=== PATIENT | male | born 1960 | race Caucasian/White ===

== ENCOUNTER 2019-10-04 14:36 | Outpatient (CLI) | payer OTHER, SELFPAY ==
--- NOTE | 2019-10-04 14:49 | XRR_ITS ---
PROCEDURE INFORMATION: Exam: XR Left Shoulder Exam date and time: 10/04/2019 3:24 PM Age: 59 years old Clinical indication: Pain; Shoulder; Left; Additional info: Shoulder pain, left TECHNIQUE: Imaging protocol: XR Left shoulder. Views: AP internal and external rotation views, and a scapular Y view of the LEFT shoulder. COMPARISON: No relevant prior studies available. FINDINGS: Bones/joints: Normal. Soft tissues: Normal. XR/XR shoulder LT min 2V* [id number] IMPRESSION: No acute bony injury identified.
== END 2019-10-04 14:37 | disposition home or self-care (01) ==
LOC: RAD 14:44
PROVIDERS: PCP Nurse Practitioner Family; Visit Provider Nurse Practitioner Family
DX: M25.512 Pain in left shoulder (principal)
CPT/HCPCS: 73030

== ENCOUNTER 2019-12-06 09:01 | Outpatient (CLI) | payer OTHER, SELFPAY ==
--- NOTE | 2019-12-06 | MR_ITS ---
WS: [id number] MRI LEFT SHOULDER NONCONTRAST TECHNIQUE: Sagittal T2, coronal T1, T2 and proton density imaging. Axial gradient PDE imaging. CLINICAL INFORMATION: SHOULDER PAIN, LEFT COMPARISON: None. FINDINGS: Moderate to advanced degenerative arthritis AC joint. Rotator cuff arthropathy with narrowing and cesar r complete loss of the subacromial space. Moderate edema AC joint. Near complete loss of the subacrom ial space with chronic thinning of the residual rotator cuff. Normal supraspinatus is not identified and appears completely torn and retracted. Atrophy of the supraspinatus muscle belly. Supraspinatus a ppears retracted to the level of the glenohumeral joint. A few residual dorsal infraspinatus fibers w ith marked chronic thinning and chronic tear of the majority of the infraspinatus. Chronic atrophy of the infraspinatus muscle belly. Teres minor is normal in appearance. Partial tear with tendinopathy and T2 signal abnormality involvi ng the distal subscapularis tendon. Chronic appearing atrophy of the proximal and intra-articular bic eps tendon consistent with chronic tear. Distal biceps tendon appears more normal in the bicipital g roove. Glenoid labrum appears grossly intact. No visualized labral tears. Degenerative bone marrow si gnal involving the humeral head and greater tuberosity. MR/MR shoulder LT wo con* [id number] IMPRESSION: 1. Moderate to advanced degenerative arthritis AC joint with edema and near co mplete loss of the subacromial space. 2. Chronic appearing full-thickness tear involving the supraspinatus with lee lar appearance to the infraspinatus. A few residual infraspinatus fibers dorsal ly. 3. Normal teres minor. 4. Tendinopathy with partial tear involving the subscapularis tendon with T2 s ignal abnormality and thickening. 5. Tiny atrophic proximal intra-articular biceps tendon consistent with chroni c tear. Distal biceps tendon is a more normal appearance in the bicipital groov e. 6. Glenoid labrum appears grossly intact.
== END 2019-12-06 09:02 | disposition home or self-care (01) ==
LOC: RADWPI 09:04
PROVIDERS: PCP Nurse Practitioner Family; Visit Provider Nurse Practitioner Family
DX: M25.512 Pain in left shoulder (principal); M19.012 Primary osteoarthritis, left shoulder; M75.102 Unspecified rotator cuff tear or rupture of left shoulder, not specified as traumatic
CPT/HCPCS: 73221

== ENCOUNTER → 2022-11-19 10:13 | Outpatient (BNVA) | payer BC, SELFPAY | PROVIDERS: PCP Nurse Practitioner Family; Visit Provider Nurse Practitioner Family | DX: M79.671 Pain in right foot (principal) | CPT/HCPCS: 73630 ==

== ENCOUNTER 2024-05-01 17:46 | Emergency (ER) | payer BC, SELFPAY ==
[2024-05-01 17:50] VITALS: BP 120/75; PULSE 78; RESP 20; TEMP 36.6; O2SAT 99; BMI 28.6
--- NOTE | 2024-05-01 18:24 | CTR_ITS ---
PROCEDURE INFORMATION: Exam: CT Head Without Contrast Exam date and time: 05/01/2024 6:44 PM Age: 64 years old Clinical indication: Other: Syncope TECHNIQUE: Imaging protocol: Computed tomography of the head without contrast. Radiation optimization: All CT scans at this facility use at least one of these dose optimization techniques: automated exposure control; mA and/or kV adjustment per patient size (includes targeted exams where dose is matched to clinical indication); or iterative reconstruction. COMPARISON: No relevant prior studies available. RADIATION DOSE METRICS: Total DLP (mGy-cm): 1070.51 FINDINGS: Brain: No acute intracranial hemorrhage. No acute territorial region of forman-white dedifferentiation. No extra-axial collection. No mass effect or midline shift. Mild burden of nonspecific white matter hypoattenuation, likely chronic microvascular ischemic change. Generalized parenchymal volume loss. Cerebral ventricles: No acute hydrocephalus. Paranasal sinuses: Partially imaged and limited evaluation due to motion. No fluid levels. Mastoid air cells: Visualized mastoid air cells are well aerated. Orbital cavities: Not well evaluated due to motion. Bones: No acute calvarial fracture. Soft tissues: No acute abnormality. CT/CT head wo con* [id number] IMPRESSION: No acute intracranial hemorrhage or evidence of acute territorial infarct.
--- NOTE | 2024-05-01 18:24 | XRR_ITS ---
PROCEDURE INFORMATION: Exam: XR Chest Exam date and time: 05/01/2024 6:33 PM Age: 64 years old Clinical indication: Dyspnea; Additional info: Syncope TECHNIQUE: Imaging protocol: Radiologic exam of the chest. Views: 1 view. COMPARISON: MR shoulder LT wo con* [id number] 12/06/2019 9:28 AM FINDINGS: Lungs: Subsegmental opacity in the left lateral lung base, most likely atelectasis. Pleural spaces: No large pleural effusion. No pneumothorax. Heart/Mediastinum: Cardiomediastinal silhouette within normal limits. Bones/joints: No acute fracture. Moderate acromioclavicular osteoarthritis bilaterally. XR/XR chest 1V portable [id number] IMPRESSION: Subsegmental opacity in the left lateral lung base, most likely atelectasis.
--- NOTE | 2024-05-01 18:27 | ECG_ITS ---
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 Measurements Intervals May Rate: 75 P: 58 VA: 180 QRS: 43 QRSD: 90 T: 58 QT: 403 QTc: 451 Interpretive Statements SINUS RHYTHM Possible left atrial enlargement No previous ECG available for comparison Electronically Signed On 05-01-2024 21:07:37 CDT by lBaise Yancey M.D. [id number]
[2024-05-01 18:46] LABS: Basophils % 0.4 %; Eosinophils # 0.1 10^3/uL (0.0-0.8); Eosinophils % 0.9 %; Lymphocytes # 1.5 10^3/uL (0.8-4.8); Lymphocytes % 14.1 %; Mean Corpuscular HGB Conc 33.5 g/dL (30-55); Mean Corpuscular Hemoglobin 32.6 pg (27-33); Mean Corpuscular Volume 97.5 fl (82-101); Mean Platelet Volume 9.2 fL (7.4-10.4); Monocytes # 0.8 10^3/uL (0.2-0.9); Neutrophils % 76.1 %; Nucleated Red Blood Cells % 0 %; Platelet Count 140 10^3/cmm (157-399); Red Blood Count 4.72 10^6/uL (3.85-5.65); Red Cell Distribution Width 11.8 % (12.1-15.1); White Blood Count 10.25 10^3/uL (3.29-11.43)
--- NOTE | 2024-05-01 18:57 | W.ED.SYNCOPE ---
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 He presents after what sounds like a near syncopal episode while at a family gathering. He had been sitting. He began to feel dizzy meaning lightheaded like he might pass out. He told a family member that he needed to go lay down. After getting up from the sitting position, he fell to the ground. Family that was with him states that he was in fact awake the whole time, but was very weak, diaphoretic, and somewhat altered although mostly coherent. When EMS arrived, at the time they got him up to put him on the gurney, he had a brief syncopal episode then. No convulsions noted. No loss of bowel or bladder function. The patient did not bite his tongue, etc. He feels improved at this point, but still generally weak. Related Data Allergies Allergy/AdvReac Type Severity Reaction Status Date / Time No Known Allergies Allergy Unverified 11/19/22 10:12 Physical Exam Const: COMMON NORMALS: no acute distress GENERAL APPEARANCE: cooperative and ill appearing (Mildly); not frail appearing HENMT: COMMON NORMALS: normocephalic, atraumatic and Normal external nose present HEAD & SCALP: normocephalic and atraumatic FACE & SINUS: normal facial exam and face symmetric NOSE: Normal external nose present Eye: COMMON NORMALS: Equal, round and reactive pupils present and EOMs intact bilaterally PUPIL: Yes Equal, round and reactive pupils present Neck/C-Spine: GENERAL: Yes trachea midline Chest: CHEST: Yes Symmetrical chest wall rise Resp: COMMON NORMALS: normal respiratory effort, No retractions, No use of accessory muscles and clear to auscultation bilaterally AUSCULTATION: clear to auscultation bilaterally Cardio: COMMON NORMALS: regular rate and regular rhythm RATE: regular rate RHYTHM: regular rhythm GI: COMMON NORMALS: Normal to inspection, nondistended, normoactive bowel sounds present Extremity: COMMON NORMALS: no pedal edema Neuro: EDVIN COMA SCALE: document GCS findings Edvin coma scale eye opening: Spontaneous [place] coma scale verbal response: Orientated [place] coma scale motor response: Obey commands Edvin coma scale total score: 15 SENSORY EXAM: Yes extremities (intact) Psych: COMMON NORMALS: speech normal SPEECH: Yes normal speech Skin: COMMON NORMALS: no rashes or lesions noted GENERAL SKIN EXAM: no rashes or lesions noted Course Vital Signs: Vital signs: Vital Signs Temperature 97.9 F 05/01/24 17:50 Pulse Rate 70 05/01/24 20:31 Respiratory Rate 16 05/01/24 20:31 Blood Pressure 132/83 05/01/24 20:31 Pulse Oximetry 97 05/01/24 20:31 Oxygen Delivery Me thod Room Air 05/01/24 20:31 MDM - Syncope Medical Decision Making Apparently his blood pressure was quite low on scene. It is improved now. He had a liter of bolus in the field. He is getting another liter. He is normotensive currently, vitals are stable. His NIH stroke scale is a 0. 240. BUN is 28. Otherwise laboratory not remarkable. Chest x-ray shows atelectasis in the left lateral lung base. Head CT shows nothing acute. Urinalysis is negative. Alcohol is nondetectable. He has received 2 L here. He is feeling better. He is ambulated in the ER. His first troponin is less than 6. His EKG is normal. Awaiting second troponin prior to discharge. He will return for repeated episodes, or other worsening symptoms. Lab Data 05/01/24 18:39 05/01/24 18:39 Radiology Impressions Chest X-Ray 05/01/24 18:24 IMPRESSION: Subsegmental opacity in the left lateral lung base, most likely atelectasis. Head CT 05/01/24 18:24 IMPRESSION: No acute intracranial hemorrhage or evidence of acute territorial infarct. Laboratory Results WBC 10.25 10^3/uL (3.29-11.43) 05/01/24 18:39 RBC 4.72 10^6/uL (3.85-5.65) 05/01/24 18:39 Hgb 15.40 g/dL (11.27-16.99) 05/01/24 18:39 Hct 46.0 % (37-53) 05/01/24 18:39 MCV 97.5 fl (82-101) 05/01/24 18:39 MCH 32.6 pg (27-33) 05/01/24 18:39 MCHC 33.5 g/dL (30-55) 05/01/24 18:39 RDW 11.8 % (12.1-15.1) L 05/01/24 18:39 Plt Count 140 10^3/cmm (157-399) L 05/01/24 18:39 MPV 9.2 fL (7.4-10.4) 05/01/24 18:39 Neut % (Auto) 76.1 % 05/01/24 18:39 Lymph % (Auto) 14.1 % 05/01/24 18:39 [place] % (Auto) 8.0 % 05/01/24 18:39 Eos % (Auto) 0.9 % 05/01/24 18:39 Baso % (Auto) 0.4 % 05/01/24 18:39 Neut # (Auto) 7.80 10^3/uL (1.8-7.7) H 05/01/24 18:39 Lymph # (Auto) 1.5 10^3/uL (0.8-4.8) 05/01/24 18:39 [place] # (Auto) 0.8 10^3/uL (0.2-0.9) 05/01/24 18:39 Eos # (Auto) 0.1 10^3/uL (0.0-0.8) 05/01/24 18:39 Baso # (Auto) 0.0 10^3/uL (0.0-0.1) 05/01/24 18:39 Nucleated RBC % (auto) 0 % 05/01/24 18:39 Nucleated RBCs # 0.0 /100WBC 05/01/24 18:39 PT 13.50 SECONDS (12.1-14.9) 05/01/24 18:39 INR 1.00 (0.8-1.2) 05/01/24 18:39 APTT 29.7 SECONDS (23.9-36.7) 05/01/24 18:39 Sodium 138 mmol/L (136-145) 05/01/24 18:39 Potassium 4.2 mmol/L (3.5-5.1) 05/01/24 18:39 Chloride 104 mmol/L (98-107) 05/01/24 18:39 Carbon Dioxide 24 mmol/L (22-29) 05/01/24 18:39 Anion Gap 14.2 (5-19) 05/01/24 18:39 BUN 28 mg/dL (8-23) H 05/01/24 18:39 Creatinine 0.8 mg/dL (0.7-1.2) 05/01/24 18:39 GFR Calculation 98.0 mL/min (90-130) 05/01/24 18:39 Glucose 240 mg/dL (65-115) H 05/01/24 18:39 Calculated Osmolality 299 mOsm/kg (285-295) H 05/01/24 18:39 Calcium 8.3 mg/dL (8.5-10.5) L 05/01/24 18:39 Magnesium 1.9 mg/dL (1.7-2.3) 05/01/24 18:39 Total Bilirubin 1.0 mg/dL (0.15-1.2) 05/01/24 18:39 AST 17 U/L (0-40) 05/01/24 18:39 ALT 39 U/L (0-41) 05/01/24 18:39 Alkaline Phosphatase 85 U/L (40-130) 05/01/24 18:39 Creatine Kinase 69 U/L (39-308) 05/01/24 18:39 Troponin T Baseline < 6 ng/L (0-15) 05/01/24 18:39 Troponin T 120 Minute 6.00 ng/L (0-15) 05/01/24 20:30 Delta Troponin T 0.34830 ABS# (0-10) 05/01/24 20:30 NT-Pro-B Natriuret Pep 45 pg/mL (0-125) 05/01/24 18:39 Total Protein 6.3 g/dL (6.6-8.7) L 05/01/24 18:39 Albumin 4.0 g/dL (3.5-5.2) 05/01/24 18:39 Globulin 2.3 g/dL (1.3-4.6) 05/01/24 18:39 Urine Color Yellow (Yellow) 05/01/24 19:28 Urine Appearance Clear (CLEAR) 05/01/24 19:28 Urine pH 5.5 (5-7) 05/01/24 19:28 Ur Specific [place] 1.031 (1.005-1.030) H 05/01/24 19:28 Urine Protein Negative (Negative) 05/01/24 19:28 Urine Glucose (UA) 3+ (Normal) H 05/01/24 19:28 Urine Ketones 1+ (Negative) H 05/01/24 19:28 Urine Blood Negative (Negative) 05/01/24 19:28 Urine Nitrate Negative (Negative) 05/01/24 19:28 Urine Bilirubin Negative (Negative) 05/01/24 19:28 Urine Urobilinogen 1.0 mg/dL (Negative) 05/01/24 19:28 Ur Leukocyte Esterase Negative (Negative) 05/01/24 19:28 Urine RBC 0-2 /hpf (0-2) 05/01/24 19:28 Urine WBC 0-5 /hpf (0-5) 05/01/24 19:28 Ur Squamous Epith Cells 0-5 /hpf (0-5) 05/01/24 19:28 Amorphous Sediment Not Reportable 05/01/24 19:28 Urine Bacteria None seen /hpf (NONE) 05/01/24 19: Hyaline Casts 5.36 /lpf 05/01/24 19: Ethyl Alcohol < 10 mg/dL (0-10) 05/01/24 18:39 All radiology interpretation(s) finalized by discharge Discharge Plan Discharge Patient Disposition: Home Clinical Impression: Pre-syncope, Dehydration Condition: Stable Discharge Orders: Discharge ED (Routine); Ordered 05/01/24 Ordered By: Iglesia Scanlon Referrals: Analy Brown [Primary Care Provider] - 1-3 days Patient Instructions: Dehydration (ED), Near Syncope (ED), Opioid Safety, Pain Management Activity Restrictions/Additional Instructions: Stay in a calm cool environment for the next 48 hours. Return for any development of chest pain, repeated episodes of syncope or passing out, seizures, altered mental status, weakness, other concerning symptoms. See your doctor next week. 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
[2024-05-01 18:59] LABS: Partial Thromboplastin Time 29.7 SECONDS (23.9-36.7)
[2024-05-01 19:09] LABS: Troponin(5th) Baseline < 6 ng/L (0-15)
[2024-05-01] MEDS: sodium chloride 0.9% 1,000 ML 999 ML IV (19:15)
[2024-05-01 19:16] LABS: Alanine Aminotransferase 39 U/L (0-41); Alkaline Phosphatase 85 U/L (40-130); Anion Gap 14.2 (5-19); Aspartate Amino Transferase 17 U/L (0-40); Blood Urea Nitrogen 28 mg/dL (8-23); Calcium 8.3 mg/dL (8.5-10.5); Carbon Dioxide 24 mmol/L (22-29); Chloride 104 mmol/L (98-107); Creatine Phosphokinase 69 U/L (39-308); Creatinine Clr Calc Pharmacy 105.1088; Globulin 2.3 g/dL (1.3-4.6); Glucose 240 mg/dL (65-115); Magnesium 1.9 mg/dL (1.7-2.3); NT Pro B Type Natriuretic Pept 45 pg/mL (0-125); Osmolality Calculated 299 mOsm/kg (285-295); Potassium 4.2 mmol/L (3.5-5.1); Sodium 138 mmol/L (136-145); Total Protein 6.3 g/dL (6.6-8.7)
[2024-05-01 19:17] LABS: Alcohol Level < 10 mg/dL (0-10)
[2024-05-01 19:40] LABS: Bilirubin Urine Negative (Negative); Blood Urine Negative (Negative); Glucose Urine UA 3+ (Normal); Ketones Urine 1+ (Negative); Leukocyte Esterase Urine Negative (Negative); Nitrate Urine Negative (Negative); Protein Urine Negative (Negative); Urine Appearance Clear (CLEAR); Urine Color Yellow (Yellow); pH Urine 5.5 (5-7)
[2024-05-01 19:42] VITALS: BP 149/89; PULSE 79; RESP 16; O2SAT 95
[2024-05-01 19:45] LABS: Add Urine Microscopic? YES; Bacteria Urine None Seen /hpf; Hyaline Casts Urine 5.36 /lpf; RBC Urine 0-2 /hpf (0-2); Squamous Epithelial Cell Urine 0-5 /hpf (0-5); WBC Urine 0-5 /hpf (0-5)
[2024-05-01 19:47] LABS: Specific Gravity, Urine 1.031 (1.005-1.030)
--- NOTE | 2024-05-01 20:19 | ECG_ITS ---
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 Measurements Intervals [place] Rate: 73 P: 63 [place]: 213 QRS: 32 QRSD: 85 T: 56 QT: 386 QTc: 427 Interpretive Statements SINUS RHYTHM WITH FIRST DEGREE AV BLOCK Compared to ECG 05/01/2024 18:27:51 First degree AV block now present Electronically Signed On 05-02-2024 22:55:31 CDT by Blaise Yancey M.D. [email or web address] the [id number]
[2024-05-01 20:31] VITALS: BP 132/83; PULSE 70; RESP 16; O2SAT 97
[2024-05-01 20:55] LABS: Troponin 5 2HR Delta 0.00001 ABS# (0-10)
[2024-05-01 21:14] VITALS: BP 113/65; PULSE 75; RESP 16; O2SAT 95
== END 2024-05-01 21:16 | disposition home or self-care (01) ==
PROVIDERS: Emergency Provider Emergency Medicine; PCP Nurse Practitioner Family
DX: R55 Syncope and collapse (principal); E86.0 Dehydration
CPT/HCPCS: 36415; 70450; 71045; 80053; 80307; 81001; 82550; 83735; 83880; 84484; 85025; 85610; 85730; 93005; 99285; J7030